=== PATIENT | male | born 1995 ===

== ENCOUNTER 2017-05-23 10:39 | Emergency (ER) | payer MEDICAID ==
[2017-05-23 10:49] VITALS: BMI 28.1
[2017-05-23 10:53] VITALS: BP 139/81; PULSE 90; RESP 18; TEMP 98.4; O2SAT 100
--- NOTE | 2017-05-23 11:34 | RAD ---
HISTORY: Cough COMPARISON: No prior. TECHNIQUE: Chest PA and lateral FINDINGS: LUNGS: No active pulmonary disease. PLEURA: No significant pleural effusion identified. No pneumothorax apparent. CARDIOVASCULAR: Normal. OSSEOUS STRUCTURES: No significant abnormalities. VISUALIZED UPPER ABDOMEN: Normal. OTHER FINDINGS: None. IMPRESSION: No active disease.
--- NOTE | 2017-05-23 11:52 | C.PDOC ---
History Of Present Illness 22 y/o male w/o significant PMHx presents to ED with complaints of fatigue, malaise, body aches and subjective fever for 2-3 days . Otherwise, pt denies high fever, lethargy, dizziness, vertigo, visual changes, focal deficits, neck pain, drooling, dysphagia, dyspnea, CP, SOB, cough, wheezing, palpitation, abd. pain, V/D, UTI sx, denies recent travel or known sick contact. Ambulate to Ed for evaluation, not in any apparent distress. HPI: Influenza Time Seen by Provider: 05/23/17 11:09 Chief Complaint: Flu-like Symptoms History Per: Patient Past Medical History Reviewed: Historical Data, Nursing Documentation, Vital Signs Vital Signs: Last Vital Signs Temp 98.4 F 05/23/17 10:49 Pulse 90 05/23/17 10:49 Resp 18 05/23/17 10:49 BP 139/81 05/23/17 10:49 Pulse Ox 100 05/23/17 10:49 - Medical History PMH: No Chronic Diseases Surgical History: No Surg Hx Family History: States: No Known Family Hx - Social History Hx Tobacco Use: No Hx Alcohol Use: No Hx Substance Use: No - Immunization History Hx Tetanus Toxoid Vaccination: No Hx Influenza Vaccination: No Hx Pneumococcal Vaccination: No Review Of Systems Except As Marked, All Systems Reviewed And Found Negative. Constitutional: Positive for: Chills, Malaise. Negative for: Fever ENT: Positive for: Nose Congestion. Negative for: Ear Discharge, Nose Discharge , Throat Pain, Throat Swelling Cardiovascular: Negative for: Chest Pain, Palpitations, Edema, Light Headedness Respiratory: Negative for: Cough, Shortness of Breath, Wheezing Gastrointestinal: Negative for: Nausea, Vomiting, Abdominal Pain, Diarrhea Genitourinary: Negative for: Dysuria Musculoskeletal: Negative for: Neck Pain, Back Pain Skin: Negative for: Rash Neurological: Negative for: Altered Mental Status, Headache, Dizziness Physical Exam - Physical Exam Appears: Well, Non-toxic, No Acute Distress Skin: Normal Color, Warm, Dry, No Rash, No Ecchymosis Head: Normacephalic Eye(s): bilateral: PERRL Ear(s): Bilateral: Normal Nose: No Flaring, No Discharge Oral Mucosa: Moist, No Drooling Throat: No Erythema, No Drooling Neck: Trachea Midline, Supple Cardiovascular: Rhythm Regular, No Murmur, No JVD Respiratory: No Decreased Breath Sounds, No Accessory Muscle Use, No Stridor, No Wheezing Gastrointestinal/Abdominal: Soft, No Tenderness, No Distention, No Guarding Back: No CVA Tenderness Extremity: Normal ROM, No Deformity, No Swelling Neurological/Psych: Oriented x3, Normal Speech, Normal Cognition, Normal Motor, Normal Sensation, Normal Reflexes - ECG O2 Sat by Pulse Oximetry: 100 Pulse Ox Interpretation: Normal - Radiology X-Ray: Interpreted by Me, Viewed By Me, Read By Radiologist X-Ray Interpretation: No Acute Disease - Progress ED Course And Treament: On re-evaluation, pt is afebrile, hemodynamicaly stable. Non-toxic. Tolerate PO well in ED. PulseOx 100% RA Neck: Supple, (-) meningeal sign ENT: no acute findings Lungs: CTA B/L, BS equal B/L. CVS: (+)S1S2, reg. Abd: benign, (-) guarding, (-) rebound back: (-) CVA tenderness CXR review, normal study. Pt has clinical findings c/w viral illness Pt advised. ref. to f/u with PMD in 2-3 days for re-eval. return if any new changes. Disposition Counseled Patient/Family Regarding: Studies Performed, Diagnosis, Need For Followup, Rx Given - Disposition Referrals: [facility] [Outside] Disposition: HOME/ ROUTINE Disposition Time: 11:49 Condition: STABLE Additional Instructions: Encourage fluids Take medication as prescribed Follow up with PMD in 2-3 days for re-evaluation. Return to ED if any worsening or new changes. Prescriptions: Ibuprofen [Motrin] 1 tab PO TID PRN #20 tab PRN Reason: Pain Oseltamivir Phosphate [Tamiflu] 75 mg PO BID #10 capsule Instructions: Flu Forms: [employer] (Vietnamese), Work Excuse Print Language: MOHAWK - Clinical Impression Clinical Impression: Influenza-like illness
== END 2017-05-23 12:12 | disposition home or self-care (01) ==
LOC: C.ER 10:39
DX: J11.1 Influenza due to unidentified influenza virus with other respiratory manifestations (principal)